=== PATIENT | male | born 1975 | race African-American/Black ===

== ENCOUNTER 2018-06-29 00:48 | Emergency (ER) | payer OTHER ==
--- NOTE | 2018-06-29 00:50 | ED Physician Documentation ---
General Adult - HISTORIAN Historian: patient - HPI Stated Complaint: abdominal pain and "I think I am withdrawling from pain meds" Chief Complaint: General Adult Onset: hours (10) Timing: still present Severity: moderate Further Comments: yes (He states he was told by his PCP he could have a refill on his pain med this am and when he went to the office he was told his PCP would not be back in until tomororw. 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 He also states that his "radha who is a ER staff member at [facility] said if I have abdominal pain I can not point to the pain is from my pain med withdrawls" He states he has had muliple episodes of vomiting and diarrhea and abdominal pain "all over" He did in fact tell the nurse as it was reported to myself he was here due to running out of meds for low back pain from historically back fusions. He states he has no fever although had some sweating. No injury. He also reprots he is trying to be medically cut back on pain meds to be placed on medical marijuana He also reports he currently smokes marijuana at this time.) - ROS CONST: no problems GI/: abdominal pain, vomiting, nausea, diarrhea (he is not sure of the amount of times for vomiting or diarrhea ). denies: problems urinating MS/SKIN/LYMPH: denies: rash NEURO/PSYCH: denies: headache - PAST HX Past History: other (chronic back pain ) Allergies/Adverse Reactions: Allergies Allergy/AdvReac Type Severity Reaction Status Date / Time No Known Allergies Allergy Verified 06/29/18 02:05 Home Medications: Ambulatory Orders Medication Instructions Recorded Dicyclomine HCl 06/29/18 Duloxetine HCl [Cymbalta] 06/29/18 Duloxetine HCl [Cymbalta] 60 mg PO 06/29/18 Hydromorphone HCl [Dilaudid] 1 tab PO Q6 PRN 06/29/18 - SOCIAL HX Smoking History: cigarettes Alcohol Use: none Drug Use: marijuana - FAMILY HX Family History: No - REVIEWED ASSESSMENTS Nursing Assessment Reviewed: Yes Vitals Reviewed: Yes Progress - Progress Progress: 0219: Pt has decided to leave AMA DG General Adult Physical Exam - PHYSICAL EXAM GENERAL APPEARANCE: no distress EENT: eye inspection normal, ENT inspection normal, no signs of dehydration NECK: normal inspection RESPIRATORY: no resp distress, chest non-tender, breath sounds normal CVS: reg rate & rhythm, heart sounds normal, equal pulses, no murmur ABDOMEN: soft, normal bowel sounds, no distension, non-tender BACK: normal inspection, no CVA tenderness SKIN: warm/dry, normal color EXTREMITIES: non-tender, normal range of motion, no evidence of injury, no edema NEURO: oriented X3 Discharge Clincal Impression: Abdominal pain Qualifiers: Abdominal location: unspecified location Qualified Code(s): R10.9 - Unspecified abdominal pain Referrals: Primary Doctor,No [Primary Care Provider] - 2 Days Disposition: 07 AGAINST MEDICAL ADVICE Decision to Admit: NO Date of Decison to Admit: 06/29/18 Decision Time: 02:20
[2018-06-29] MEDS: ONDANSETRON HCL/PF 4 MG/ 2ML VIAL IVP ONE (01:55)
[2018-06-29] MEDS: KETOROLAC TROMETHAMINE 30 MG/1ML VIAL IV ONE (01:58)
[2018-06-29] MEDS: 0.9 % SODIUM CHLORIDE 1,000 ML IV ONE (02:04)
[2018-06-29 02:38] VITALS: BP 138/98
[2018-06-29 06:39] LABS: APPEARANCE,URINE CLEAR (CLEAR); COLOR,URINE YELLOW (YELLOW); OCCULT BLOOD,URINE 1+ (NEGATIVE); PH URINE 7.5 (5.0 - 8.0)
[2018-06-29 06:49] LABS: BASOPHILS % 0.6 % (0.0-1.5); EOSINOPHILS % 1.5 % (0.0-6.8); MEAN CORPUSCULAR HEMOGLOBIN 28.7 pg (28.0-34.0); MONOCYTES % 7.8 % (0.0-11.0); NEUTROPHILS # 8.5 # k/uL (1.4-7.7)
[2018-06-29 06:50] LABS: eGFR (Non-African) > 60
== END 2018-06-29 02:22 | disposition left against medical advice (07) ==
LOC: ED 00:48
DX: R10.9 Unspecified abdominal pain (principal)
CPT/HCPCS: 36415; 80053; 80377; 81002; 85025; 87086; 96374; 96375; 99282; 99284; J1885; J2405; J7030; G0481; S1016

== ENCOUNTER 2019-01-12 10:49 | Observation (INO) | payer OTHER ==
[2019-01-12] MEDS ORDERED: 0.9 % SODIUM CHLORIDE 1,000 ML IV ONE ×2 (10:53→15:14)
[2019-01-12] MEDS ORDERED: ASPIRIN 81 MG CHEW TAB PO ONE (10:53)
--- NOTE | 2019-01-12 10:53 | ED Physician Documentation ---
Chest Pain - VITAL SIGNS Vital Signs: Vital Signs Temp Pulse Resp BP Pulse Ox 98.9 F 82 16 140/85 99 01/12/19 10:50 01/12/19 14:25 01/12/19 14:25 01/12/19 14:25 01/12/19 14:25 <Dwayne Keene - Last Filed: 01/12/19 14:39> - HISTORIAN Historian: patient - HPI Stated Complaint: chest pain Chief Complaint: Chest Pain Onset: minutes (30) Timing: sudden onset Duration: constant Last known Well Date: 01/12/19 Last Known Well Time: 11:00 Context: other (he did not explain this ) Severity: severe Quality: tightness Chest Pain Radiation: shoulders Chest Pain Signs/Symptoms: nausea, vomiting Worsened By: movement Relieved By: nothing Further Comments: yes (He states 30 min prior to arrival he started to have a pressure like chest pain so he drove from [place] to our facilty. He states he started to sweat feel nausea and chest pain with tightness into his shoulder. Denies any OTC meds taken for symptoms. He is all over bed and is unable to answer questions well.) - ROS CONST: none - PAST HX SC risk factors: hypertension DVT/PE Risk Factors: bedridden GI disease: other (IBS ) Lung disease: none Immunizations: UTD - SOCIAL HX Smoking History: cigarettes Alcohol Use: none Drug Use: none - FAMILY HX Family HX: none - VITAL SIGNS Vital Signs: Vital Signs Temp Pulse Resp BP Pulse Ox 138/98 06/29/18 02:15 - REVIEWED ASSESSMENTS Nursing Assessment Reviewed: Yes Vitals Reviewed: Yes <Cori Sagastume - Last Filed: 01/24/19 07:46> - PAST HX Allergies/Adverse Reactions: Allergies Allergy/AdvReac Type Severity Reaction Status Date / Time No Known Allergies Allergy Verified 01/12/19 11:09 Home Medications: Ambulatory Orders Medication Instructions Recorded Duloxetine HCl [Cymbalta] 60 mg PO DAILY 06/29/18 Buprenorphine HCl/Naloxone HCl 1 tab PO TID 01/12/19 [Suboxone 8 mg-2 mg Tablet] Chlorthalidone [Thalitone] 1 tab PO DAILY 01/12/19 Tizanidine HCl [Zanaflex] 1 cap PO BID 01/12/19 Progress - Progress Progress: 14:18 As requested by the ED provider to come over and evaluate patient. Patient is a 43-year-old male with approximately a four hours history of some left anterior/shoulder pain. Patient denies any precipitating cause that he is aware. Patient take the pain is worse with the breathing and lying down. Does get some relief with sitting. Patient has been diaphoretic associated with it. Patient describes the pain as being a pressure/knifelike pain. Patient denies any previous episodes of any similar pain. Patient did not have a history of coronary artery disease. Patient stated he has been short of breath with it. Denies any weaving. Patient denies any cough. Patient denies any recent trauma injury to the checked her shoulder area. Patient is not had any fever or chills. Patient denies any increased swelling to his legs her pain in the Areas. Patient is not have a previous DVT or PE. PMH: HTN, opiate drug use, has been prescribed ongoing suboxone 8/2 TID prescribed by a [facility] physician. States that he has not taken any however in the last week. Didnot want to take it any longer. EXAM: VS P 62 R 22 SAo2 98% on RA BP 146/94 skin mild diaphoresis noted. Lungs clear, breath sounds equal and full bilat; Chest wall mild tenderness over the upper lateral chest area, no bony abnl noted, no subq crepitus, no ecchymosis; CV RRR without murmur, No JVD noted; Abd soft minimal epigastric tenderness noted. BS present, no masses or organomegally noted; Ext trace swelling, no calf tenderness noted, no cords palpable; Shoulder left- FROM, some pain with external rotation, no crepitus noted; Neck FROM, no tenderness noted. ED course: EKG shows not acuted ischemic changes, Labs have been reviewed, troponin normal. CXR: essentially normal CT scan pending Patient has been given ASA, ketorolac, lorazepan, morphine with only minimal or short term relief in pain. Has been given ondansteron, promethatzine and orphenadrine also. Reccommendations: I would try some NTG to see if that helps with the pain. I am not convinced that the pain is related to a cardiac source although it is possible. Pain does not seem to be muscular skeletal in nature. Awiating result from CT scan to r/u possible PE. Repeat troponin at this time. <Dwayne Keene - Last Filed: 01/12/19 14:39> - Progress Progress: 1140: he is unable to track with talking he did have meds for opioid abuse but states he was not taking that for opioid abuse it was from his psych. He states pain is "some better much DG 1149: states pain is still the same needs something for pain per his report. He is moving in bed. DG 1155: states pain is improving and he continues to vomit DG 1205: states pain is returning. He does note he has IBS at times. He does deny any injury. No change in assessment . HRR. Lungs CTA no decrease air movement. DG 1220: Discussed results and need for scan of chest he reports there is no way with pain he can lay flat. HE is requesting something more to help him relax. Denies any shortness of air. Pain is minimally less on left chest and shoulder DG 1315: he states pain is increasing. He is diaphoretic. No shortness of air. No abdominal pain. He continues to have nausea DG 1335: HE states he does not want the nausea med - he is wanting more pain meds that is why he is here. Did discuss case with Dr Keene and he will be over to see the pt DG 1415: Dr Keene here for face to face eval. Request pt have Nitro. Continue with urine exam. DG 1419: states decrease in pain slightly post nitro DG 1435: states he is sure it is time for more pain meds he is having no more pressure - no more nitro is needed he wants meds for the actual painDG 1440: discussed pain and options will treat for muscle pain - DG 1510: he is resting quietly now no diaphoresis. VS stable. Dr Keene aware. DG 1535: Pt is requesting pain meds - not pressure he is asking when is it time for more pain med DG 1600: Discussed findings with Dr Keene - he is agreeable to obs admission for pain. He is aware and agreeable DG <Cori Sagastume - Last Filed: 01/24/19 07:46> ED Results Lab/Radiology - Lab Results Lab Results: Lab Results 01/12/19 01/12/19 01/12/19 14:15 10:53 10:53 WBC 16.20 K/ul H K/ul (4.00-12.00) RBC 6.00 M/ul H M/ul (3.90-5.20) Hgb 16.6 g/dL g/dL (12.0-18.0) Hct 50.3 % % (37.0-53.0) MCV 84.0 fl fl (80.0-100.0) MCH 27.6 pg L pg (28.0-34.0) MCHC 32.9 g/dL g/dL (30.0-36.0) RDW 12.7 % % (11.3-14.3) Plt Count 300 K/mm3 K/mm3 (130-400) Neut % (Auto) 85.1 % H % (39.0-79.0) Lymph % (Auto) 8.7 % L % (16.0-50.0) [place] % (Auto) 4.8 % % (0.0-11.0) Eos % (Auto) 1.0 % % (0.0-6.8) Baso % (Auto) 0.4 % % (0.0-1.5) Neut # (Auto) 13.8 # k/uL H # k/uL (1.4-7.7) Lymph # (Auto) 1.4 # k/uL # k/uL (0.6-4.0) [place] # (Auto) 0.8 # k/uL # k/uL (0.0-0.9) Eos # (Auto) 0.2 # k/uL # k/uL (0.0-0.6) Baso # (Auto) 0.1 # k/uL # k/uL (0.0-0.5) D-Dimer 999 ng/mL H ng/mL (6.0-682) Sodium 143 mmol/L mmol/L (137-145) Potassium 4.2 mmol/L mmol/L (3.5-5.1) Chloride 102 mmol/L mmol/L (98-107) Carbon Dioxide 27 mmol/L mmol/L (22-30) Anion Gap 18.2 BUN 17 mg/dL mg/dL (9-20) Creatinine 0.76 mg/dL mg/dL (0.66-1.25) Est GFR ( Amer) > 60 (60 - ) Est GFR (Non-Af Amer) > 60 (60 - ) Glucose 199 mg/dL H mg/dL (74-106) Calcium 10.4 mg/dL H mg/dL (8.4-10.2) Total Bilirubin 0.6 mg/dL mg/dL (0.2-1.3) AST 52 U/L H U/L (15-46) ALT 41 U/L U/L (0-50) Alkaline Phosphatase 104 U/L U/L (38-126) CK-MB (CK-2) 0.2 ng/mL ng/mL (0.0-5.6) Troponin I Pending < 0.012 ng/mL L ng/mL (0.012-0.034) Total Protein 9.9 g/dL H g/dL (6.3-8.2) Albumin 4.7 g/dL g/dL (3.5-5.0) Amylase 115 U/L H U/L (30-110) Lipase 81 U/L U/L (23-300) - Orders Orders: ED Orders Category Date Time Status Continuous EKG monitoring Q1H Care 01/12/19 10:53 Active IV Started NOW Care 01/12/19 10:53 Active CHEST 1VIEW [RAD] Stat Exams 01/12/[address] ABD & PELVIS W/ CON Stat Exams 01/12/[address] PE CHEST Stat Exams 01/12/[address] PE CHEST Stat Exams 01/12/19 Ordered AMYLASE Routine Lab 01/12/19 14:15 Results CBC/PLATELET/DIFF Stat Lab 01/12/19 10:53 Completed CKMB Stat Lab 01/12/19 10:53 Completed CMP Stat Lab 01/12/19 10:53 Completed D DIMER Stat Lab 01/12/19 10:53 Completed LIPASE Stat Lab 01/12/19 14:15 Results TROPONIN I Stat Lab 01/12/19 10:53 Completed TROPONIN I Stat Lab 01/12/19 14:15 Results UDS [DRUG SCREEN URINE MEDICAL ONLY] Routine Lab 01/12/19 Ordered 0.9 % Sodium Chloride [Normal Saline] 1,000 ml Med 01/12/19 10:53 Discontinued IV NOW Aspirin [Doris] Med 01/12/19 10:53 Discontinued 324 mg PO NOW ONE Ketorolac Tromethamine [Toradol] Med 01/12/19 11:21 Discontinued 30 mg IV NOW ONE LORazepam [Ativan] Med 01/12/19 14:31 Discontinued 1 mg IV NOW ONE LORazepam [Ativan] Med 01/12/19 14:30 Discontinued 2 mg .ROUTE .STK-MED ONE Morphine Sulfate Med 01/12/19 11:47 Discontinued 4 mg IV NOW ONE Nitroglycerin [Nitroquick] Med 01/12/19 14:05 Discontinued 0.4 mg SL NOW ONE Ondansetron HCl/Pf [Zofran] Med 01/12/19 11:31 Discontinued 4 mg .ROUTE .STK-MED ONE Ondansetron HCl/Pf [Zofran] Med 01/12/19 11:34 Discontinued 4 mg IVP NOW ONE Orphenadrine Citrate [Norflex] Med 01/12/19 14:29 Discontinued 60 mg .ROUTE .STK-MED ONE Orphenadrine Citrate [Norflex] Med 01/12/19 14:32 Discontinued 60 mg IM NOW ONE Promethazine HCl [Phenergan] 25 mg Med 01/12/19 11:55 Discontinued 0.9 % Sodium Chloride [Normal Saline] 50 ml IV NOW diazePAM [Valium] Med 01/12/19 12:27 Discontinued 5 mg IV NOW ONE Oxygen Daily Oxygen 01/12/19 11:00 Ordered EKG WITH COMPARISON Stat Ther 01/12/19 Ordered <Dwayne Keene - Last Filed: 01/12/19 14:39> Chest Pain Physical Exam - EXAM General Appearance: severe distress EENT: eye inspection normal, no signs of dehydration Respiratory: no resp. distress, chest non-tender, nml breath sounds CVS: reg. rate & rhythm, no murmur Abdomen: soft, normal bowel sounds, no distension Skin: warm/dry, normal color Extremities: non-tender, normal range of motion, no evidence of injury, no edema Neuro: oriented X3 <Cori Sagastume - Last Filed: 01/24/19 07:46> Discharge <Dwayne Keene - Last Filed: 01/12/19 14:39> Comments: Dr Keene Decision to Admit: [id number] Date of Decison to Admit: 01/12/19 Decision Time: 16:03 <Cori Sagastume - Last Filed: 01/24/19 07:46> Clincal Impression: Chest pain Qualifiers: Chest pain type: other chest pain Qualified Code(s): R07.89 - Other chest pain Condition: Fair Disposition: 09 ADMITTED INPATIENT
[2019-01-12 11:15] LABS: BASOPHILS % 0.4 % (0.0-1.5); NEUTROPHILS # 13.8 # k/uL (1.4-7.7)
[2019-01-12] MEDS ORDERED: KETOROLAC TROMETHAMINE 30 MG/1ML VIAL IV ONE (11:21)
[2019-01-12] MEDS ORDERED: ONDANSETRON HCL/PF 4 MG/ 2ML VIAL ONE (11:31)
[2019-01-12] MEDS ORDERED: ONDANSETRON HCL/PF 4 MG/ 2ML VIAL IVP ONE (11:34)
[2019-01-12 11:36] LABS: eGFR (Non-African) > 60
--- NOTE | 2019-01-12 11:46 | Diagnostic Imaging Report ---
PATIENT MR#: [id number] PATIENT PATIENT NAME: RAYMOND CARRION DATE OF : 1975 REFERRING PHYSICIAN: Cori Sagastume EXAM DATE: 01/12/2019 ACCESSION NUMBER: [id number] EXAM DESCRIPTION: CHEST 1VIEW Chest 1 view Indication: PCXR, CHEST PAIN, PT UNABLE TO PROVIDE FURTHER HX, NO PRIOR EXAMS AVAILABLE Findings: Frontal view of the chest shows mild low lung volumes. There is no consolidation, pleural effusion, or pneumothorax. The heart size is normal. Impression: Low lung volumes. No consolidation. Read by: Dr. Javad Gatica Transcribed by: Transcribed Date: Electronically signed by: Dr. Javad Gatica Date signed: 01/12/2019 11:45:56 AM
[2019-01-12] MEDS ORDERED: MORPHINE SULFATE 4 MG/ML VIAL IV ONE (11:47)
[2019-01-12] MEDS ORDERED: PROMETHAZINE HCL 25 MG in 0.9 % SODIUM CHLORIDE 50 ML IV ONE (11:55)
--- NOTE | 2019-01-12 14:02 | Diagnostic Imaging Report ---
PATIENT MR#: [id number] PATIENT PATIENT NAME: RAYMOND CARRION DATE OF : 1975 REFERRING PHYSICIAN: Cori Sagastume EXAM DATE: 01/12/2019 ACCESSION NUMBER: [id number] EXAM DESCRIPTION: CT PE CHEST CT CHEST WITH CONTRAST CT 3-D RECONSTRUCTED IMAGES ON INDEPENDENT WORKSTATION CLINICAL INDICATION: CT CHEST, PE PROTOCOL, CHEST PAIN, ELEVATED D-DIMER. PT HAVING DIFFICULTY LAYING FLAT AND FOLLOWING Note time : 01/12/2019 1:03:05 PM User : Jovana Odell CT CHEST, PE PROTOCOL, CHEST PAIN, ELEVATED D-DIMER. PT HAVING DIFFICULTY LAYING FLAT AND FOLLOWING INSTRUCTIONS F OR EXAM, PT UNABLE TO PROVIDE A MORE DETAILED HX. (DICOM Hx) (DICOM H x) TECHNIQUE: 2.0 mm axial images through the thorax via routine PE protocol. 3-D reconstructed images w ere obtained in the usual fashion. COMPARISON: FINDINGS: There is poor opacification of the bilateral main pulmonary arteries, lobar, segmental and subsegment al branches. Evaluation for pulmonary embolus cannot be obtained on this study. Repeat examination with correct ti nathan of contrast bolus into the pulmonary arterial system would be recommended. The thoracic aorta is unremarkable. Mo tion limits the examination as well. There is no consolidation, effusion, or pneumothorax. There are degenerative matthew nges of the spine. There is no bulky axillary, mediastinal or hilar lymphadenopathy. Impression: Limited examination due to timing of the contrast bolus. The pulmonary arterial system cannot be eval uated for embolus. Repeat examination is recommended. See above Read by: Dr. Javad Gatica Transcribed by: Transcribed Date: Electronically signed by: Dr. Javad Gatica Date signed: 01/12/2019 2:02:01 PM
[2019-01-12] MEDS ORDERED: NITROGLYCERIN 0.4 MG TAB.SUBL SL ONE (14:05)
[2019-01-12] MEDS ORDERED: ORPHENADRINE CITRATE 60 MG/2 ML ML ONE (14:29)
[2019-01-12] MEDS ORDERED: LORazepam 2 MG/ML VIAL ONE (14:30)
[2019-01-12] MEDS ORDERED: LORazepam 2 MG/ML VIAL IV ONE (14:31)
[2019-01-12] MEDS ORDERED: ORPHENADRINE CITRATE 60 MG/2 ML ML IM ONE (14:32)
--- NOTE | 2019-01-12 15:47 | Diagnostic Imaging Report ---
PATIENT MR#: [id number] PATIENT PATIENT NAME: RAYMOND CARRION DATE OF : 1975 REFERRING PHYSICIAN: Cori Sagastume EXAM DATE: 01/12/2019 ACCESSION NUMBER: [id number] EXAM DESCRIPTION: CT ABD PELVIS W/O CO Exam: CT abdomen and pelvis without contrast. History: Hematuria. Dysuria. Axial images through the abdomen and pelvis are obtained after IV infusion of contrast material for a PE protocol chest CT is performed along with sagittal and coronal reformatted images. The visualized lower lung garcia are clear. No free intraperitoneal air is identified. Surgical clips in the gallbladder fossa are noted. The liver is normal in attenuation without space- occupying lesion. The spleen and pancreas are normal attenuation. The adrenal glands are normal configuration. The ab dominal aorta is of normal caliber. No periaortic lymphadenopathy is identified. Both kidneys are normal attenuation. No hydronephrosis is seen. The urinary bladder is partially di stended. The visualized appendix is of normal configuration. The small bowel is of normal caliber. Air and s tool seen throughout the large intestine. No inflammatory changes in the mesentery or ascites is identified. Previous interbody fusion of L4-5 and L5-S1 levels are noted. Laminectomy defects at L4 and L5 are a lso noted. No other bony abnormalities are identified. Impression: Previous cholecystectomy. No hydronephrosis is noted. Nonspecific bowel gas pattern. No inflammatory changes in the mesentery or ascites is identified. Read by: Dr. Mohamud Montero Transcribed by: Transcribed Date: Electronically signed by: Dr. Mohamud Montero Date signed: 01/12/2019 3:47:01 PM
--- NOTE | 2019-01-12 15:50 | Diagnostic Imaging Report ---
PATIENT MR#: [id number] PATIENT PATIENT NAME: RAYMOND CARRION DATE OF : 1975 REFERRING PHYSICIAN: Cori Sagastume EXAM DATE: 01/12/2019 ACCESSION NUMBER: [id number] EXAM DESCRIPTION: CT PE CHEST CT chest PE protocol History: Elevated D-dimer and chest pain Technique: Helically acquired images were obtained from the thoracic inlet to the adrenal glands fol lowing IV contrast and using a CTA protocol. 3D MIPS were obtained. Findings: No filling defects are identified within the pulmonary arteries to suggest pulmonary embol ism. The thoracic aorta and great vessels are unremarkable. There is no mediastinal or hilar lymphadenopathy. There i s no pericardial or pleural effusion. The adrenal glands are normal. Lungs are clear. No osseous abnormalities are not ed. Impression: No intrathoracic abnormality. No evidence for pulmonary embolism. Read by: Dr. Silvana Collins Transcribed by: Transcribed Date: Electronically signed by: Dr. Silvana Collins Date signed: 01/12/2019 3:50:01 PM
[2019-01-12] MEDS ORDERED: fentaNYL CITRATE/PF 100 MCG/2 ML INJ. IVP ONE ×2 (15:58)
[2019-01-12] MEDS ORDERED: ACETAMINOPHEN 325 MG TABLET PO PRN (16:35)
[2019-01-12] MEDS ORDERED: ONDANSETRON HCL/PF 4 MG/ 2ML VIAL IVP PRN (16:39)
[2019-01-12] MEDS: 0.9 % SODIUM CHLORIDE 1,000 ML IV SCH ×2 (17:22→21:58)
[2019-01-12 18:28] VITALS: BMI 78.4
[2019-01-12] MEDS: KETOROLAC TROMETHAMINE 30 MG/1ML VIAL IV PRN (18:31)
[2019-01-12] MEDS ORDERED: methylPREDNISolone SOD SUCC 125 MG/2 ML VIAL IVP ONE (18:52)
--- NOTE | 2019-01-12 19:05 | History and Physical Report ---
History of Present Illnes - History of Present Illness Reason for Visit: chest pain History of Present Illness: Patient is a 43-year-old male with approximately a four hours history of some left anterior/shoulder pain. Patient denies any precipitating cause that he is aware. Patient take the pain is worse with the breathing and lying down. Does get some relief with sitting. Patient has been diaphoretic associated with it. Patient describes the pain as being a pressure/knifelike pain. Patient denies any previous episodes of any similar pain. Patient did not have a history of coronary artery disease. Patient stated he has been short of breath with it. Denies any wheezing. Patient denies any cough. Patient denies any recent trauma injury to the left shoulder area. Patient is not had any fever or chills. Patient denies any increased swelling or pain to his legs. Patient is not have a previous DVT or PE. Patient presented to the ED. Cardiac enzymes were done and were within normal range. EKG remain stable without any ischemic changes noted. CT scan of the chest was done and no evidence of pulmonary embolization could be appreciated. There is no abnormalities of the bony component of the shoulder noted on x-rays. Patient was subsequently admitted to the hospital for further care and evaluation. - Past Medical History Cardiac: HTN Dermatology: Cellulitis (recently admitted to [facility] for cellulitis of his foot.) - Past Surgical History Past Surgical History: Cholecystectomy, Other (spinal fusion, 2011) - Past Social History Smoke: Quit Occupation: disabled Alcohol: None Drugs: None Lives: With Family - Health Maintenance Health Maintenance: denies: Cholesterol, Influenza Vaccine, Pneumococcal Vaccine Influenza Vaccine: No Pneumonia Vaccine: No Resuscitation Status: Resusciation Status Resuscitation Status Full Code - Unable to Obtain History Unable to Obtain: No Review of Systems - Review of Systems Constitutional: Sweats. negative: Fever, Chills Eyes: negative: pain ENT: negative: Ear Pain, Ear Discharge, Nose Pain, Nose Discharge, Nose Congestion, Throat Swelling Respiratory: Cough (mild), Dry, Pleuritic Pain. negative: Shortness of Breath, Hemoptysis, SOB with Excertion Cardiovascular: Chest Pain. negative: Palpitations, Orthopnea, Paroxysmal Noc. Dyspnea, Edema Gastrointestinal: Nausea, Vomiting. negative: Abdominal Pain, Diarrhea Genitourinary: negative: Dysuria, Frequency, Hematuria Musculoskeletal: Shoulder Pain. negative: Neck Pain, Arm Pain, Back Pain Skin: negative: Rash Neurological: negative: Weakness, Numbness, Incoordination, Change in Speech, Confusion - Medications/Allergies Allergies/Adverse Reactions: Allergies Allergy/AdvReac Type Severity Reaction Status Date / Time No Known Allergies Allergy Verified 01/12/19 11:09 Home Medications: Home Medications Buprenorphine HCl/Naloxone HCl [Suboxone 8 mg-2 mg Tablet] 1 tab PO TID 01/12/19 Chlorthalidone [Thalitone] 1 tab PO DAILY 01/12/19 Tizanidine HCl [Zanaflex] 1 cap PO BID 01/12/19 Current Inpatient Medications: Current Inpatient Medications Acetaminophen (Tylenol) 650 mg PO Q6H PRN PRN Reason: Mild Pain (Score 1-4) Stop: 02/11/19 16:34 Sodium Chloride (Normal Saline) 1,000 mls @ 100 mls/hr IV Q10H DAVID Stop: 02/11/19 16:44 Last Admin: 01/12/19 17:22 Dose: 100 mls/hr Ketorolac Tromethamine (Toradol) 30 mg IV Q6H PRN PRN Reason: MILD TO MOD PAIN (1-7 SCALE) Stop: 01/17/19 16:34 Last Admin: 01/12/19 18:31 Dose: 30 mg Methylprednisolone Sodium Succinate (Solu-Medrol) 125 mg IVP NOW ONE Stop: 01/12/19 18:53 Ondansetron HCl (Zofran) 4 mg IVP Q6H PRN PRN Reason: Nausea / Vomiting Stop: 02/11/19 16:38 Exam - Exam Vital Signs: Vital Signs (72 hours) 01/12/19 01/12/19 01/12/19 10:50 10:53 11:53 Temperature 98.9 F Pulse Rate 72 68 Pulse Rate [ 72 Right Pulse ox] Respiratory 24 Rate Blood Pressure [Left Arm] Blood Pressure 116/86 [Right Arm] O2 Sat by Pulse 99 Oximetry 01/12/19 01/12/19 01/12/19 13:00 14:00 14:25 Temperature Pulse Rate 67 67 Pulse Rate [ 82 Right Pulse ox] Respiratory 16 Rate Blood Pressure [Left Arm] Blood Pressure 140/85 [Right Arm] O2 Sat by Pulse 99 Oximetry 01/12/19 01/12/19 01/12/19 14:38 15:00 16:00 Temperature 98.4 F Pulse Rate 57 L 65 Pulse Rate [ 58 L Right Pulse ox] Respiratory 11 L Rate Blood Pressure [Left Arm] Blood Pressure 166/93 [Right Arm] O2 Sat by Pulse 97 Oximetry 01/12/19 01/12/19 01/12/19 16:28 16:32 16:54 Temperature 98.4 F 98.7 F Pulse Rate 70 Pulse Rate [ 56 L 52 L Right Pulse ox] Respiratory 13 20 Rate Blood Pressure [Left Arm] Blood Pressure 151/93 169/101 [Right Arm] O2 Sat by Pulse 97 97 Oximetry 01/12/19 01/12/19 01/12/19 17:00 18:00 18:25 Temperature 98.0 F 98.7 F Pulse Rate 60 Pulse Rate [ 55 L 52 L Right Pulse ox] Respiratory 20 20 Rate Blood Pressure 160/101 169/113 [Left Arm] Blood Pressure [Right Arm] O2 Sat by Pulse 99 99 Oximetry General: Alert, Oriented to Person, Oriented to Place, Oriented to Time, Cooperative HEENT: Atraumatic, PERRLA, EOMI, Mouth Mucous membr. moist/Snyder, Nose Mucous membr. moist/Snyder Neck: Normal Range of Motion Carotids: WNL Thyroid: WNL Lungs: Clear to auscultation, Normal air movement, Speaks full Sentences, Chest Wall Tenderness (patient did have some mild tenderness to palpation over the left upper chest wall area over the third and fourth rib.) Cardiovascular: Regular rate, Normal S1, Normal S2, No murmurs Abdomen: Normal bowel sounds, Soft, No tenderness, No hepatospenomegaly, No masses Integumentary: Normal, Snyder, Warm, Dry Extremities: No clubbing, No cyanosis, No edema, Normal pulses, No tenderness/swelling, Other (patient does have some tenderness to palpation to the left anterior shoulder area. No bony of the melted could be appreciated. Patient did complain of some mild increased pain with abduction and external rotation.) Neurological: Normal gait, Normal speech, Strength Equal Bilat, Normal tone, Sensation intact, Cranial nerves 3-12 NL, Reflexes 2+ Psych/Mental Status: Mental status NL, Mood NL, Appropriate Affect, Intact Judgment - Laboratory Results Laboratory Results: Laboratory Results 01/12/19 01/12/19 01/12/19 10:53 10:53 14:15 WBC 16.20 H RBC 6.00 H Hgb 16.6 Hct 50.3 MCV 84.0 MCH 27.6 L MCHC 32.9 RDW 12.7 Plt Count 300 Neut % (Auto) 85.1 H Lymph % (Auto) 8.7 L [place] % (Auto) 4.8 Eos % (Auto) 1.0 Baso % (Auto) 0.4 Neut # (Auto) 13.8 H Lymph # (Auto) 1.4 [place] # (Auto) 0.8 Eos # (Auto) 0.2 Baso # (Auto) 0.1 D-Dimer 999 H Sodium 143 Potassium 4.2 Chloride 102 Carbon Dioxide 27 Anion Gap 18.2 BUN 17 Creatinine 0.76 Est GFR ( Amer) > 60 Est GFR (Non-Af Amer) > 60 Glucose 199 H Calcium 10.4 H Total Bilirubin 0.6 AST 52 H ALT 41 Alkaline Phosphatase 104 CK-MB (CK-2) 0.2 Troponin I < 0.012 L < 0.012 L Total Protein 9.9 H Albumin 4.7 Amylase 115 H Lipase 81 Assessment/Plan - Assessment/Plan (1) Atypical chest pain Status: Acute VTE Assessment - RISK FACTOR SCORE VTE RISK FACTOR SCORES: AGE 40-60 YEARS, ANTICIPATED BED CONFINEMENT OR IMMOBILIZATION > 24 HOURS
[2019-01-12] MEDS ORDERED: ZOLPIDEM TARTRATE 5 MG TABLET PO PRN (19:08)
[2019-01-12] MEDS ORDERED: ACETAMINOPHEN 1,000 MG/100 ML INJ IV ONE (19:58)
[2019-01-12] MEDS ORDERED: ACETAMINOPHEN 1,000 MG/100 ML INJ IV PRN (20:03)
[2019-01-13] MEDS: KETOROLAC TROMETHAMINE 30 MG/1ML VIAL IV PRN (00:03)
[2019-01-13 03:37] VITALS: BP 169/101
--- NOTE | 2019-01-13 08:32 | Discharge Summary ---
Discharge Summary - Discharge [facility] Admission Date: 01/12/19 (Observation) Discharge Date: 01/13/19 (Home AMA) Discharge To: Home History of Present Illness: Patient is a 43-year-old male with approximately a four hours history of some left anterior/shoulder pain. Patient denies any precipitating cause that he is aware. Patient take the pain is worse with the breathing and lying down. Does get some relief with sitting. Patient has been diaphoretic associated with it. Patient describes the pain as being a pressure/knifelike pain. Patient denies any previous episodes of any similar pain. Patient did not have a history of coronary artery disease. Patient stated he has been short of breath with it. Denies any wheezing. Patient denies any cough. Patient denies any recent trauma injury to the left shoulder area. Patient is not had any fever or chills. Patient denies any increased swelling or pain to his legs. Patient is not have a previous DVT or PE. Patient presented to the ED. Cardiac enzymes were done and were within normal range. EKG remain stable without any ischemic changes noted. CT scan of the chest was done and no evidence of pulmonary embolization could be appreciated. There is no abnormalities of the bony component of the shoulder noted on x-rays. Patient was subsequently admitted to the hospital for further care and evaluation. Condition at Discharge: Stable Home Medications: Ambulatory Orders Medication Instructions Recorded Duloxetine HCl [Cymbalta] 60 mg PO DAILY 06/29/18 Buprenorphine HCl/Naloxone HCl 1 tab PO TID 01/12/19 [Suboxone 8 mg-2 mg Tablet] Chlorthalidone [Thalitone] 1 tab PO DAILY 01/12/19 Tizanidine HCl [Zanaflex] 1 cap PO BID 01/12/19 Consultations this Visit: None Procedures this Visit: None Allergies/Adverse Reactions: Allergies Allergy/AdvReac Type Severity Reaction Status Date / Time No Known Allergies Allergy Verified 01/12/19 11:09 Discharge Summary: Patient was admitted to the floor. Patient was placed on telemetry. Serial cardiac enzymes showed the troponin to remained stable and within normal range. Patient was started on IV dilated every four hours for pain management. Patient stated that this but not controlling his pain well. Patient within given IV acetaminophen. Initially this did seem to help some with pain. However patient stated that the pain returned. Patient did have some diaphoresis assoociated with the pain. Patient was noted to have some mild clear nasal drainage/rhino rrhea. After admission at around midnight patient decided that he wanted to leave AMA. Patient called his IV out got dressed and left the hospital. Patient breath advised about the potential risk of leaving before a more definitive diagnosis could be made for the etiology of his chest pain. Patient however insisted to leave. At the time of dismissal patient files plan for stable resident his blood pressure was elevated moderately. Patient was encouraged to follow up with his primary care physician the following day. - Final Diagnosis (1) Atypical chest pain Problems: Patient left AMA
== END 2019-01-13 00:40 | disposition left against medical advice (07) ==
LOC: ED 10:49 → SOUTH 16:09
PROVIDERS: ADMIT Family Medicine; ATTEND Family Medicine
DX: R07.89 Other chest pain (principal)
CPT/HCPCS: 36415; 71045; 74176; 80053; 80377; 82150; 82553; 83690; 84484; 84550; 85025; 85379; 93005; 96361; 96372; 96374; 96375; 96376; 99218; 99283; 99284; G0378; J1885; J2060; J2270; J2360; J2405; J2930; J3010; J3360; J7030; Q9967; 71275; G0481; S1016